=== PATIENT | female | born 1985 | race African-American/Black ===

== ENCOUNTER 2017-02-24 09:46 | Emergency (ER) | payer OTHER ==
[~2017-02-24] VITALS: Ht 162.6 cm; Wt 70.3 kg
[~2017-02-24 09:46] MED LIST: ACETAMINOPHEN325 M1 PO; CALCIUM PO; CLARITIN10 MG PO; COLACE100 MG; ERY-TAB500 MG PO; IBUPROFEN 600600 M1 PO; LANSINOH 60 GM60 GM; LASIX 20 MG TAB20 MG PO; LORTAB 5 MG/5001 TA1 PO; MEDROLDOSEPACK PO; MOM; MULTIVITAMINS PO; NAPROSYN500 MG PO; NOHOMEMEDICATIONS; NORCO 5-325 TA1 EACH PO; PEPCID40 MG PO; PHENERGAN 25 MG25 M1; POTASSIUM20 PO; PRENATAL; PROTONIX40 M2 PO; SENNA S TABLET1 EACH; VICODIN 5-5001 EACH; ZANTAC 150MG T150 M1 PO
[2017-02-24] MEDS ORDERED: UNICOMPLEX M TA1 TA1 PO (10:43)
[2017-02-24] MEDS ORDERED: NORFLEX100 MG PO (12:42)
[2017-02-24] MEDS ORDERED: NAPROSYN500 MG PO (12:42)
[2017-02-24 12:58] VITALS: BP 120/75
== END 2017-02-24 13:00 | disposition home or self-care (01) ==
LOC: ER 09:46
DX: S16.1XXA Strain of muscle, fascia and tendon at neck level, initial encounter (principal); Z90.49 Acquired absence of other specified parts of digestive tract; Z88.1 Allergy status to other antibiotic agents; V89.2XXA Person injured in unspecified motor-vehicle accident, traffic, initial encounter; Y93.89 Activity, other specified; Y92.89 Other specified places as the place of occurrence of the external cause; Y99.8 Other external cause status

== ENCOUNTER 2017-09-10 12:28 | Emergency (ER) | payer OTHER ==
[~2017-09-10] VITALS: Ht 160 cm; Wt 72.6 kg
[~2017-09-10 12:28] MED LIST changes: +NORFLEX100 MG PO; +UNICOMPLEX M TA1 TA1 PO
[2017-09-10 12:29] VITALS: BP 156/87
[2017-09-10 12:57] LABS: URINE BILIRUBIN NEGATIVE (Negative); URINE BLOOD NEGATIVE (Negative); URINE CLARITY CLEAR; URINE COLOR YELLOW; URINE GLUCOSE-RANDOM* NEGATIVE (Negative); URINE KETONES NEGATIVE (Negative); URINE LEUKOCYTES NEGATIVE (Negative); URINE NITRITE NEGATIVE (Negative); URINE PROTEIN (DIPSTICK) NEGATIVE (Negative); URINE UROBILINOGEN 0.2 E.U./dl (0.2-1.0)
[2017-09-10 13:17] LABS: ABSOLUTE NEUTROPHILS 4.5 thou/uL (1.4-8.2); BASOPHILS 0.6 % (0.0-2.0); EOSINOPHILS 0.7 % (0.0-3.0); HEMATOCRIT 40.2 % (37.0-47.0); HEMOGLOBIN 12.9 gm/dL (12.0-15.0); LYMPHOCYTES 36.2 % (24.0-44.0); MCH 26.5 pg (26.0-34.0); MCHC 32.2 g/dL (28.0-37.0); MCV 82.5 fL (80.0-100.0); MONOCYTES 9.6 % (1.0-8.0); PLATELET COUNT 212 thou/uL (150-400); POLYS 52.9 % (36.0-66.0); RBC 4.87 mil/uL (4.20-5.00); RDW 15.8 % (10.5-14.5); WBC 8.5 thou/uL (4.0-11.0)
[2017-09-10 13:32] LABS: CALCIUM 9.2 mg/dL (8.5-10.1); POTASSIUM 3.4 mmol/L (3.5-5.1)
[2017-09-10 13:36] LABS: ALBUMIN 3.6 g/dL (3.4-5.0); TOTAL BILIRUBIN 0.5 mg/dL (<0.1-1.0); TOTAL PROTEIN 7.4 g/dL (6.4-8.2)
[2018-04-16] MEDS ORDERED: NORFLEX100 MG PO (12:29)
[2018-04-16] MEDS ORDERED: NAPROSYN500 MG PO (12:29)
[2018-04-16] MEDS ORDERED: MEDROLDOSEPACK PO (12:29)
== END 2017-09-10 14:06 | disposition home or self-care (01) ==
LOC: ER 12:28
PROVIDERS: Physician Assistant
DX: O20.0 Threatened abortion (principal); Z3A.01 Less than 8 weeks gestation of pregnancy; Z88.1 Allergy status to other antibiotic agents

== ENCOUNTER 2021-01-25 12:12 | Emergency (ER) | payer OTHER ==
[~2021-01-25] VITALS: Ht 160 cm; Wt 77.1 kg
[2021-01-25] MEDS ORDERED: PROGESTERO50 MG/1 M3 IM (12:21)
[2021-01-25 14:16] LABS: ABSOLUTE NEUTROPHILS 7.8 thou/uL (1.4-8.2); BASOPHILS 0.6 % (0.0-2.0); EOSINOPHILS 1.7 % (0.0-3.0); HEMATOCRIT 41.5 % (37.0-47.0); MCHC 31.3 g/dL (28.0-37.0); MCV 79.9 fL (80.0-100.0); MONOCYTES 6.5 % (1.0-8.0); PLATELET COUNT 302 thou/uL (150-400); POLYS 71.2 % (36.0-66.0); RBC 5.19 mil/uL (4.20-5.00); RDW 16.5 % (10.5-14.5)
[2021-01-25 15:03] VITALS: BP 123/81
== END 2021-01-25 15:03 | disposition home or self-care (01) ==
LOC: ER 12:12
PROVIDERS: Nurse Practitioner
DX: O20.9 Hemorrhage in early pregnancy, unspecified (principal); R10.9 Unspecified abdominal pain; Z3A.01 Less than 8 weeks gestation of pregnancy; Z98.0 Intestinal bypass and anastomosis status; Z90.49 Acquired absence of other specified parts of digestive tract

== ENCOUNTER 2021-08-12 05:49 | Emergency (ER) | payer OTHER ==
[~2021-08-12] VITALS: Ht 160 cm; Wt 79.8 kg
[~2021-08-12 05:49] MED LIST changes: +PROGESTERO50 MG/1 M3 IM
[2021-08-12 07:18] LABS: URINE BILIRUBIN NEGATIVE (Negative); URINE BLOOD NEGATIVE (Negative); URINE CLARITY CLEAR; URINE COLOR YELLOW; URINE GLUCOSE-RANDOM* NEGATIVE (Negative); URINE KETONES NEGATIVE (Negative); URINE LEUKOCYTES-REFLEX NEGATIVE (Negative); URINE NITRITE-REFLEX NEGATIVE (Negative); URINE PROTEIN (DIPSTICK) NEGATIVE (Negative); URINE UROBILINOGEN 0.2 E.U./dl (0.2-1.0)
[2021-08-12 08:08] LABS: ABSOLUTE NEUTROPHILS 2.7 thou/uL (1.4-8.2); BASOPHILS 0.3 % (0.0-2.0); EOSINOPHILS 1.4 % (0.0-3.0); HEMATOCRIT 39.9 % (37.0-47.0); HEMOGLOBIN 12.3 gm/dL (12.0-15.0); LYMPHOCYTES 35.2 % (24.0-44.0); MCH 25.8 pg (26.0-34.0); MCHC 30.9 g/dL (28.0-37.0); MCV 83.7 fL (80.0-100.0); MONOCYTES 9.3 % (1.0-8.0); PLATELET COUNT 195 thou/uL (150-400); POLYS 53.8 % (36.0-66.0); RBC 4.77 mil/uL (4.20-5.00); RDW 16.6 % (10.5-14.5)
[2021-08-12 08:10] LABS: CALCIUM 8.9 mg/dL (8.5-10.1); CREATININE 0.8 mg/dL (0.6-1.0)
[2021-08-12 08:14] LABS: POTASSIUM 4.4 mmol/L (3.5-5.1)
[2021-08-12 08:22] LABS: ALBUMIN 3.5 g/dL (3.4-5.0); TOTAL BILIRUBIN 0.3 mg/dL (0.2-1.0); TOTAL PROTEIN 7.4 g/dL (6.4-8.2)
[2021-08-12] MEDS ORDERED: ZESTRIL20 MG PO (09:02)
[2021-08-12 09:54] VITALS: BP 121/78
--- NOTE | 2021-08-12 10:53 | EKG ---
[place] [address] [facility] [place] [address] ELECTROCARDIOGRAM REPORT Name: SHAWANDA LOPES Room #: [facility] [id number] Admission: 08/12/21 Attend Phys: Discharge: Date of : 81 Report #: [id number] [facility] ED Test Date: 2021-08-12 Test Time: 07:27:31 Pat Name: SHAWANDA LOPES Department: Room: Gender: [employer]ader: hh01 : 1985 Requested By: Marco A Silverio Order Number: [id number] MD: Rohith Briceño Measurements Intervals [place] Rate: 62 P: 4 HI: 172 QRS: 33 QRSD: 77 T: 19 QT: 414 QTc: 421 Interpretive Statements Sinus rhythm RSR' in V1 or V2, probably normal variant Compared to ECG 08/15/2013 10:06:57 RSR' in V1 or V2 now present Electronically Signed On 08-12-2021 10:53:24 [employer]ERIALS 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
== END 2021-08-12 10:09 | disposition home or self-care (01) ==
LOC: ER 05:49
PROVIDERS: Emergency Medicine
DX: I10 Essential (primary) hypertension (principal); Z20.822 Contact with and (suspected) exposure to COVID-19; Z79.899 Other long term (current) drug therapy; Z98.890 Other specified postprocedural states